=== PATIENT | female | born 1990 | race Caucasian/White ===

== ENCOUNTER 2018-10-12 04:59 | Emergency (ER) | payer OTHER ==
[~2018-10-12] VITALS: Wt 89.9 kg
[~2018-10-12 04:59] MED LIST: PREN-39 PO
[2018-10-12 05:01] VITALS: BP 146/92; PULSE 111; RESP 20
--- NOTE | 2018-10-12 05:37 | ERD ---
ER Documentation Chief Complaint Chief Complaint BUG BITE ON SCALP X'S 1 YEAR ROS All systems reviewed and are negative except as per history of present illness. Medications Home Meds Reported Medications Vits W-Ca,Fe,Fa(<1MG) ( Vitamins) 1 Tab Tablet, 1 TAB PO DAILY 09/03/14 Allergies Allergies: Coded Allergies: milk (Verified Allergy, Mild, STOMACH PAINS, 09/03/14) PMhx/Soc Medical and Surgical Hx: pt denies Medical Hx, pt denies Surgical Hx Hx Alcohol Use: No Hx Substance Use: No Hx Tobacco Use: No Smoking Status: Never smoker FmHx Family History: No diabetes, No coronary disease Physical Exam Vitals Vital Signs Date Temp Pulse Resp B/P (MAP) Pulse Ox O2 O2 Flow FiO2 Time Delivery Rate 10/12/18 97.7 111 20 146/92 99 05:01 (110) Physical Exam Const: No acute distress Head: Atraumatic Eyes: Normal Conjunctiva ENT: Normal External Ears, Nose and Mouth. Neck: Full range of motion. No meningismus. Resp: Clear to auscultation bilaterally Cardio: Regular rate and rhythm, no murmurs Abd: Soft, non tender, non distended. Normal bowel sounds Skin: No petechiae or rashes Back: No midline or flank tenderness Ext: No cyanosis, or edema Neur: Awake and alert Psych: Normal Mood and Affect Departure Diagnosis: Primary Impression: Pilar cyst Condition: Stable Additional Instructions: Thank you very much for allowing us to participate in your care. Your health and safety is our top priority at [facility]. Call your primary care doctor TOMORROW for an appointment during the next 2-4 days and bring all the information and medications prescribed. Have prescriptions filled and follow precisely the directions on the label. If the symptoms get worse and your provider is unavailable, return to the Emergency Department immediately. МАРИЯ MASTERSON MD Oct 12, 2018 05:37
== END 2018-10-12 06:35 | disposition home or self-care (01) ==
LOC: FTE 04:59
DX: L72.11 Pilar cyst (principal)
CPT/HCPCS: 81025; 84703; Z7502; 99283